=== PATIENT | female | born 2000 | race Caucasian/White ===

== ENCOUNTER 2022-06-11 09:50 | Emergency (ER) | payer SELFPAY ==
[~2022-06-11] VITALS: Ht 160 cm; Wt 60.3 kg
[2022-06-11 09:54] VITALS: BP 105/70
--- NOTE | 2022-06-11 10:03 | NUR ---
PT AMB TO BED 11.
[2022-06-11] MEDS ORDERED: POLY10SO OP ×2 (10:10→11:58)
--- NOTE | 2022-06-11 11:00 | NUR ---
PT WAS EXAMINED BY ED MD THEN D/C'D HOME WITH RX. Patient discharged with v/s stable. Written and verbal after care instructions given and explained. Patient alert, oriented and verbalized understanding of instructions. Ambulatory with steady gait. All questions addressed prior to discharge. ID band removed. Patient advised to follow up with PMD. Rx of POLYTRIM EYE DROP given. Patient educated on indication of medication including possible reaction and side effects. Opportunity to ask questions provided and answered.
[2022-06-11 11:02] VITALS: BP 102/70
== END 2022-06-11 11:02 | disposition home or self-care (01) ==
LOC: MED 09:50
DX: H10.89 Other conjunctivitis (principal); B96.89 Other specified bacterial agents as the cause of diseases classified elsewhere
CPT/HCPCS: 99283